=== PATIENT | female | born 1990 | race Caucasian/White ===

== ENCOUNTER 2017-07-29 21:35 | Emergency (ER) | payer OTHER ==
[~2017-07-29] VITALS: Ht 167.6 cm; Wt 108.5 kg
[~2017-07-29 21:35] MED LIST: CIPRO500 MG PO; HYDROCHLOROTH12.5 M3 PO; MOTRIN800 MG PO; TYLENOL WITH C1 EACH PO; ZOFRAN ODT4 MG PO
[2017-07-29] MEDS ORDERED: VALIUM5 MG PO (23:12)
[2017-07-29] MEDS ORDERED: NORCO 10/3251 TABLET PO (23:12)
[2017-07-29] MEDS ORDERED: LIDODERM 5% P1 PATCH TD (23:12)
[2017-07-29] MEDS ORDERED: MOTRIN800 MG PO (23:12)
[2017-07-29 23:49] VITALS: BP 169/93
== END 2017-07-29 23:50 | disposition home or self-care (01) ==
LOC: RME 21:35 → EME 21:35 → RME 23:50
DX: M54.16 Radiculopathy, lumbar region (principal); I10 Essential (primary) hypertension; F17.200 Nicotine dependence, unspecified, uncomplicated
CPT/HCPCS: 99281; 99283; J1885; J3010